=== PATIENT | female | born 1965 | race Caucasian/White ===

== ENCOUNTER → 2017-02-10 | Outpatient (CLI) | payer BC ==
[~2017-02-10] MED LIST: ABILIFY10 MG PO; BIOTIN1000 MCG PO; CARISOPRODOL 3350 MG PO; CHANTIX1 M1 PO; CYMBALTA20 MG PO; CYMBALTA60 MG PO; ESTRADIOL2 MG PO; FLEXERIL10 MG PO; GABAPENTIN 400400 MG PO; KEFLEX 500MG.500 MG PO; LEVAQUIN750 MG PO; LORTAB 5/500 501 TAB PO; MELOXICAM15 MG PO; MULTI VITAMINS1 TA1 PO; NEURONTIN600 MG PO; PERCOCET 325 MG1 TA3 PO; PERCOCET1 TA1 PO; PERCOCET1 TAB PO; PHENERGAN 25MG.25 M1 PO; PRISTIQ100 MG PO; PROZAC10 MG; PROZAC20 MG PO; SEROQUEL25 MG PO; SERTRALINE 100100 MG PO; TOPROL XL 25MG25 MG PO; TYLENOL W/CODEI1 TA2 PO; VITAMIN D31000 IU PO; VYVANSE60 MG PO; WELLBUTRIN XL300 MG PO; ZANAFLEX4 MG NG; [UNRECOGNIZED DRUG - OTHER] PO
--- NOTE | 2017-02-11 06:17 | RADIOLOGY REPORT PS360 ---
EXAM: CT LUNG LOW DOSE WO CONTRAST COMPARISON: None HISTORY: Tobacco abuse ORDERING PHYSICIAN: Dickson Lemus MD PATIENT AGE: 51 years TECHNIQUE: The exam was performed on a GE Light Speed [address] scanner using 2.93 mGy CTDI. A low dose helical CT CHEST was performed on a multi-detector scanner The LDCT was performed in a facility that meets the criteria for the screening program. Data regarding this exam was submitted to ACR which is an approved registry. The order for this exam indicates that it came as a result of a lung cancer screening counseling shard decision-making visit that included all the elements required of such a visit including smoking cessation. The radiologist interpreting this exam meets the [facility] criteria for the LDCT lung cancer screening program. The exam is reported using the Lung-RADS classification scale and reported to the ACR registry. NOTE: This study was performed for the specific purposes of lung cancer screening and is not an alternative to diagnostic chest CT. RADIATION DOSE: CTDI vol(CT dose Index-volume) = 2.93mG DLP (Dose Length Product) = 96.53 mGcm FINDINGS: There are multiple calcified nodules in the left upper lobe. No suspicious nodules apparent. There are atelectatic changes versus scarring in the left lung base. Prior gastric surgery and prior cholecystectomy. IMPRESSION: 1. Lung RADS Category: 2, benign 2. Other findings: Old granulomatous disease RECOMMENDATIONS: LDCT screening exam at age 57
== END ==
LOC: RAD 12:39
DX: Z87.891 Personal history of nicotine dependence (principal); Z12.2 Encounter for screening for malignant neoplasm of respiratory organs
CPT/HCPCS: G0297

== ENCOUNTER 2017-03-05 12:16 | Emergency (ER) | payer BC ==
[~2017-03-05] VITALS: Ht 167.6 cm; Wt 77.2 kg
--- OUTSIDE RECORDS SUMMARY | 2017-03-05 12:22 | External Medical Summary Rpt ---
Author Author LARRY Garay, [employer] Organization [employer] Address Unknown Phone Unavailable
--- OUTSIDE RECORDS SUMMARY | 2017-03-05 12:22 | External Medical Summary Rpt | CCD ---
Author Author , LARRY JUAREZ Address Unknown Phone [email or web address] Purpose Continuity of Care Document - 06-22-2016 through 2016 Problems Code Diagnosis DOS Provider Status N95.1 Menopausal and female climacteric states S62.102A FRACTURE OF UNSP CARPAL BONE, LEFT WRIST, INIT FOR CLOS FX Z00.00 Encounter for general adult medical examination without abnormal findings Results Labs Lab Lab Date Result Refere Interp Status Commen Order Detail nces retati t Range on Vit D25+D1,25 OH+D1,25 Pnl SerPl-mCnc (06-22-2016 16:30) 25(OH)D 26.9 complet 3 017 ng/ml ed SerPl-m 16:30 Cnc Vit B12 SerPl-mCnc (06-22-2016 16:30) Vit B12 281 211-911 complet 017 pg/mL ed Bld-mCn 16:30 c Estradiol SerPl-mCnc (06-22-2016 16:30) Estradi 49.0 complet ol 017 pg/mL ed SerPl 16:30 HS-mCnc TSH SerPl (06-22-2016 16:30) TSH 0.544 0.350-5 complet SerPl 017 mIU/mL .350 ed DL<=0.0 16:30 5 mIU/L-a Cnc Comp Metab 1997 Pnl SerPl (06-22-2016 16:30) Anion 7.0 3.0-11. complet Gap3 017 mmol/L 0 ed SerPl-s 16:30 Cnc BUN/Cre 16.0 7.0-25. complet at 017 0 ed SerPl 16:30 Albumin 1.8 1.5-2.5 complet /Glob 017 g/dL ed SerPl 16:30 Globuli 2.6 complet n Ur 017 gm/dL ed Elph-mC 16:30 nc GFR/BSA 132 >60 complet .pred 017 mL/min/ ed SerPl 16:30 1.73 MDRD-Ar VRat Bilirub 0.3 0.3-1.2 complet 017 mg/dL ed SerPl-m 16:30 Cnc ALP 63 U/L 25-100 complet SerPl-c 017 ed Cnc 16:30 AST 28 U/L 0-33 complet SerPl-c 017 ed Cnc 16:30 ALT 23 U/L 7-40 complet SerPl w 017 ed 16:30 P-5'-P- cCnc Albumin 4.60 3.20-4. complet 017 g/dL 80 ed SerPl-m 16:30 Cnc Prot 7.2 5.7-8.2 complet SerPl-m 017 g/dL ed Cnc 16:30 Calcium 10.0 8.7-10. complet 017 mg/dL 4 ed XXX-sCn 16:30 c CO2 28.0 20.0-31 complet SerPl-s 017 mmol/L .0 ed Cnc 16:30 Chlorid 104 99-109 complet e 017 mmol/L ed SerPl-s 16:30 Cnc Potassi 4.4 3.5-5.5 complet um 017 mmol/L ed Bld-sCn 16:30 c Sodium 139 132-146 complet Bld-sCn 017 mmol/L ed c 16:30 Creat 0.50 0.60-1. complet Bld-mCn 017 mg/dL 30 ed c 16:30 BUN 8 mg/dL 9-23 complet Bld-mCn 017 ed c 16:30 Glucose 87 70-100 complet 017 mg/dL ed Bld-mCn 16:30 c CBC (hemogram) Bld Auto (06-22-2016 16:30) Platele 356 150-450 complet t # Bld 017 10*3/mm ed Auto 16:30 3 PMV Bld 03-22-2 10.7 fL 6.0-12. complet Auto 017 0 ed 16:30 RDW RBC 06-22-2 42.8 fl 37.0-54 complet Auto 017 .0 ed 16:30 RDW RBC 06-22-2 12.0 % 11.3-14 complet 017 .5 ed Auto-Rt 16:30 o MCHC 06-22-2 33.0 32.0-36 complet RBC 017 g/dL .0 ed Auto-mC 16:30 nc MCH RBC 06-22-2 31.9 pg 27.0-31 complet Qn 017 .0 ed Auto 16:30 MCV RBC 2 96.7 fL 80.0-99 complet Auto 017 .0 ed 16:30 Hct VFr 06-22-2 38.5 % 34.5-44 complet Bld 017 .0 ed Auto 16:30 Hgb 06-22-2 12.7 11.5-15 complet Bld-mCn 017 g/dL .5 ed c 16:30 RBC # 06-22-2 3.98 3.89-5. complet Bld 017 10*6/mm 14 ed Auto 16:30 3 WBC 06-22-2 6.70 3.50-10 complet nRBC 017 10*3/mm .80 ed cor # 16:30 3 Bld
--- OUTSIDE RECORDS SUMMARY | 2017-03-05 12:22 | External Medical Summary Rpt | CCD ---
Demographics Preferred Language Ecuadorean Marital Status Unknown Yazdanism Affiliation Unknown Race Unknown Ethnic Group Unknown Author Author , LARRY JUAREZ Address Unknown Phone Immunization No patient found.
--- OUTSIDE RECORDS SUMMARY | 2017-03-05 12:22 | External Medical Summary Rpt | CCD ---
Author Author , LARRY JUAREZ Address Unknown Phone [email or web address] Purpose Continuity of Care Document - 06-22-2016 [...]
--- OUTSIDE RECORDS SUMMARY | 2017-03-05 12:22 | External Medical Summary Rpt | CCD ---
Author Author [employer] Organization [employer] Address Unknown Phone Unavailable Purpose Continuity of Care Document - through 2016
--- OUTSIDE RECORDS SUMMARY | 2017-03-05 12:22 | External Medical Summary Rpt | CCD ---
Demographics Preferred Language Gambian Marital Status Unknown Judaism Affiliation Unknown Race Unknown Ethnic Group Unknown Author Author , LARRY JUAREZ Address Unknown Phone Immunization No patient found.
--- NOTE | 2017-03-05 12:55 | Urgent Treatment Center Report ---
History of Present Issue Date/Time Seen by Provider 03/05/17 1253 Visit Reason Pt arrived:Walked Presenting Problem:PT C/O OF HEAD AND CHEST CONGETION, SINUS PRESSURE, BODY ACHES, AND COUGH FOR 3 DAYS Location if Accident: Onset of symptoms date/time:/ or onset unknown for:MEDICAL HX UNKNOWN Have you (or family members/close friends) recently traveled outside the [place]? N If Yes, where/when: Have you had exposure to infectious disease within the past month? TB? Other? Specify: Patient state that she has not been feeling well for several days now State that she is having sorethroat, sinus pain and pressure, body aches and cough. State that she feels like she may have been running a fever. States that she has tried several over the counter medications but nothing has worked ALLERGIES Coded Allergies: No Known Allergies (04/10/16) Home Medications Active Scripts OXYCODONE HCL/ACETAMINOPHEN (Percocet 5-325 MG Tablet) 1 TAB PO Q6HP PRN pain #20 TAB Prov: 04/10/16 Reported Medications Sertraline Hydrochloride (Sertraline 100MG) 100 MG PO DAILY #45 Lisdexamfetamine Dimesylate (Vyvanse) 75 MG PO DAILY #30 Estradiol 2 MG PO DAILY MULTIVITAMIN (One Daily Multivitamin) 1 TAB PO DAILY #2 TAB Biotin 1,000 MCG PO DAILY History Medical History General CAD? No Angina: No MD: No Hypertension? No Hyperlipidemia? No CHF? No DVT? No PE? No COPD? No Asthma? No Anemia? No GERD? No Gastric ulcers? No GI Bleed? No Hernia? No Thyroid Problems? No Hypothyroidism? No CVA? No Seizures? No Diabetes? No Renal Insuffiency? No UTI? No Stones? Yes BPH? No GB Disease: No Nephritic Syndrome? No Asplenia? No Hepatitis? No Sickle Cell Disease? No Arthritis? No Migraines? No Cataracts? No Glaucoma? No MRSA? No HIV? No TB? No Anxiety? No Depression? No Cancer? No More? Yes Additional hx: TAI ROSS SYNDROM GUILLIAN Immunization HX DT/Tetanus UNKNOWN Flu THISFLUSEA Pneumonia 04/10/11 Surgical Hx Previous Surgery?Y HYSTERECTOMY 4 YRS AGO [facility] [employer] COLONOSCOPY GB REMOVED KNEE & SHOULDER SURG Appendix KNEE BILAT SHOULDER (RIGHT) GASTRIC BYPASS 10/2007 [facility] Hx LMP 3 Weeks Ago Family History Family HX Diabetes Yes CAD Yes Hypertension Yes Hyperlipidemia No Cancer Yes TB No Social History Smoking Hx Smoker: Current Every Day Smoker Tobacco: Yes Type Cigarettes Packs/day < 1 Pack Alcohol Alcohol: No Review of Systems All Other Systems Reviewed and Negative Constitutional chills, fever ENT ear pain, nose pain, throat pain. Respiratory cough Physical Exam Vital Signs Vital Signs Date Time Temp Pulse Resp B/P Pulse O2 O2 Flow FiO2 Ox Delivery Rate 03/05 1223 98.4 72 20 147/95 98 General Appearance Patient appears ill, cheeks flush sitting on exam table Ear, Nose, Throat Tenderness noted maxillary sinus, yellowish green drainage from nose, throat red irritated Respiratory Status Yes: trachea midline, chest symmetrical, non tender chest. No: respiratory distress. Lung Sounds bilateral: normal breath sounds, lungs clear. Cardiovascular normal exam, regular rate/rhythm, no peripheral edema Neurologic alert, normal exam, oriented x 3 Medical Decision Making LABS/Meds/Orders Pt receiving controlled substance in ED? No Results/Orders Laboratory Tests 03/05/17 1250: Influenza Type A Ag NOT DETECTED, Influenza Type B Ag NOT DETECTED Current Medication Orders Sig/Darron Start time Last Medication Dose Route Stop Time Status Admin Ceftriaxone Sodium 1 GM ONCE ONE 03/05 1315 AC IM 03/05 1316 Ceftriaxone Sodium 0 .STK-MED ONE 03/05 1315 DC .ROUTE Lidocaine HCl 0 ONCE ONE 03/05 1315 AC IM 03/05 1316 Lidocaine HCl 0 .STK-MED ONE 03/05 1315 DC .ROUTE Methylprednisolone 125 MG ONCE ONE 03/05 1315 AC Sodium Succinate IM 03/05 1316 Methylprednisolone 0 .STK-MED ONE 03/05 1315 DC Sodium Succinate .ROUTE Orders Procedure Date/time Status [facility] FLU A,B 03/05 1250 Complete Departure Departure Time of Disposition 1312 Disposition DC Home or Self Care(routine) Clinical Impression Primary Impression: Upper respiratory infection Qualifiers: URI type: unspecified URI Qualified Code: J06.9 - Acute upper respiratory infection, unspecified Condition STABLE Referrals Kate SHAH,Juanito (Family): 3 Days-Call Office if no improvement in symptoms Patient Instructions Cough, DI for Nasal Congestion, Sore Throat Additional Instructions * Monitor Temp. Tylenol and/or Ibuprofen as needed. ER if fever is no less than 101 despite alternating Tylenol and Ibuprofen * Encourage fluids, water, Gatorade, powerade, pedialyte if /toddler/or child * Warm salt water gargles for throat irritation *Warm fluids *Sore throat lozenges *Sleep elevated *humidifier or vaporizer Lots of rest Increase fluids, water, Gatorade, powerade *Flonase 2 sprays each nostril daily but may take 2-3 days to notice improvement with it Follow up IMMEDIATELY for new or worsening of symptoms OR no noticeable improvement over the next 48-72 hours. 911 immediately for any life threatening symptoms such as chest pain or difficulty breathing Discharge Counseling Counseled pt/family regarding diagnosis, test results, medications/RX, home care, follow up needs Prescriptions Current Visit Scripts Loratadine (Claritin 10MG) 10 MG PO DAILY #30 TAB Fluticasone Propionate (Flonase 50 Mcg Nasal [place]) 2 SPRAY NA DAILY #1 BOT Guaifenesin (Mucinex) 1,200 MG PO BID #20 TER PROMETHAZINE/DEXTROMETHORPHAN (Promethazine-Dm Syrup) 5 ML PO Q4HP PRN cough #150 SYR at 1310
[2017-03-05] MEDS ORDERED: CLARITIN 10MG T10 MG PO (13:15)
[2017-03-05] MEDS ORDERED: MUCINEX1200 MG PO (13:15)
[2017-03-05] MEDS ORDERED: PROMETHAZINE D118 ML PO (13:15)
[2017-03-05] MEDS ORDERED: FLONASE 50 MCG16 GM (13:15)
[2017-03-05 13:23] VITALS: BP 147/95
[2017-03-13] MEDS ORDERED: HYOSCYAMINE0.125 M6 SL (18:47)
[2017-03-14] MEDS ORDERED: PHENERGAN25 M3 PO (16:18)
[2017-03-15] MEDS ORDERED: ALBUTEROL-200 PUFFS/ IH (10:41)
[2017-03-18] MEDS ORDERED: FENTANYL TR25 MCG/HR TD (11:54)
[2017-03-18] MEDS ORDERED: CEFDINIR300 M1 PO (11:55)
[2017-03-18] MEDS ORDERED: CARAFATE1 GM/10 ML PO (11:56)
[2017-03-18] MEDS ORDERED: HYOSCYAMINE0.125 M1 PO (11:57)
== END 2017-03-05 13:24 | disposition home or self-care (01) ==
LOC: UTC 12:16
DX: J06.9 Acute upper respiratory infection, unspecified (principal); F17.210 Nicotine dependence, cigarettes, uncomplicated

== ENCOUNTER 2017-03-10 07:48 | Emergency (ER) | payer BC ==
[~2017-03-10] VITALS: Ht 167.6 cm; Wt 80.3 kg
[~2017-03-10 07:48] MED LIST changes: +CLARITIN 10MG T10 MG PO; +FLONASE 50 MCG16 GM; +MUCINEX1200 MG PO; +PROMETHAZINE D118 ML PO
[2017-03-10] MEDS ORDERED: METOPROLOL SUC200 M1 PO (08:01)
[2017-03-10] MEDS ORDERED: LAMOTRIGINE100 M1 PO (08:02)
--- NOTE | 2017-03-10 08:06 | Emergency Room Report ---
History of Present Illness Time Seen by 0805 Presenting Problem in Triage Pt arrived:Walked Presenting Problem:PT STATES THAT SHE HAS BEEN SICK FOR TWO WEEKS, SEEN IN [facility] ON 03/05/17, AND ON MONDAY AND PT IS STILL NOT FEELING BETTER. PT C/O COUGH SORE THROAT, LOWER RIB PAIN, WEAKNESS, SOA. 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 N Clinical Suspician of Infection? N Mental Status: 1 - Regular (Normal Baseline) Sepsis Risk:Low Sepsis Risk Have you (or family members/close friends) recently traveled outside the [place]? N If Yes, where/when: Have you had exposure to infectious disease within the past month? N TB? Other? Specify: Patient is a smoker with wheezing and bronchitic cough for the last week or so. Seen at [facility] and neg for influenza, given steroid injection x 1. Follow up with Dr. Love on 03/07/17 and placed on Zithromax. No fever today. No vomiting. Continues to wheeze at night. Has cut down on smoking. Taking PO well. Has been on HFA's in the past but not currently. Is not currently on steroid taper. ALLERGIES Coded Allergies: acetaminophen (From LORTAB) (03/10/17) hydrocodone (From LORTAB) (03/10/17) Home Medications Active Scripts Loratadine (Claritin 10MG) 10 MG PO DAILY #30 TAB Prov: 03/05/17 Fluticasone Propionate (Flonase 50 Mcg Nasal [place]) 2 SPRAY NA DAILY #1 BOT Prov: 03/05/17 Guaifenesin (Mucinex) 1,200 MG PO BID #20 TER Prov: 03/05/17 PROMETHAZINE/DEXTROMETHORPHAN (Promethazine-Dm Syrup) 5 ML PO Q4HP PRN cough #150 SYR Prov: 03/05/17 OXYCODONE HCL/ACETAMINOPHEN (Percocet 5-325 MG Tablet) 1 TAB PO Q6HP PRN pain #20 TAB Prov: 04/10/16 Reported Medications Sertraline Hydrochloride (Sertraline 100MG) 100 MG PO DAILY #45 Lisdexamfetamine Dimesylate (Vyvanse) 75 MG PO DAILY #30 METOPROLOL SUCCINATE (Metoprolol ER 200MG) 200 MG PO DAILY #135 Lamotrigine 100 MG PO BID #180 Estradiol 2 MG PO DAILY MULTIVITAMIN (One Daily Multivitamin) 1 TAB PO DAILY #2 TAB Biotin 1,000 MCG PO DAILY History Medical History General CAD? No Angina: No OH: No Hypertension? No Hyperlipidemia? No CHF? No DVT? No PE? No COPD? No Asthma? No Anemia? No GERD? No Gastric ulcers? No GI Bleed? No Hernia? No Thyroid Problems? No Hypothyroidism? No CVA? No Seizures? No Diabetes? No Renal Insuffiency? No End Stage Renal Disease? No UTI? No Stones? Yes BPH? No GB Disease: No Nephritic Syndrome? No Asplenia? No Hepatitis? No Sickle Cell Disease? No Arthritis? No Migraines? No Cataracts? No Glaucoma? No MRSA? No HIV? No TB? No Anxiety? No Depression? No Cancer? No More? Yes Additional hx: TAI ROSS SYNDROM GUILLIAN Immunization Hx DT/Tetanus UNKNOWN Flu THISFLUSEA Pneumonia 04/10/11 Surgical Hx Previous Surgery?Y HYSTERECTOMY 4 YRS AGO [facility] COLONOSCOPY GB REMOVED KNEE & SHOULDER SURG Appendix KNEE BILAT SHOULDER (RIGHT) GASTRIC BYPASS 10/2007 [employer] OR WOMAN Hx LMP N/A Family History Family Hx Diabetes Yes CAD Yes Hypertension Yes Hyperlipidemia No Cancer Yes TB No Social History Smoking Hx Smoker: Never Smoker Tobacco: No Packs/day < 1 Pack Alcohol Alcohol: No Review of Systems All Other Systems Reviewed and Negative Respiratory see HPI Physical Exam Vital Signs Vital Signs Date Time Temp Pulse Resp B/P Pulse O2 O2 Flow FiO2 Ox Delivery Rate 03/10 0751 98.5 67 20 147/95 97 General Appearance normal appearance, WD/WN, no apparent distress Eye Exam - bilateral eye normal exam, bilateral eye PERRL, bilateral eye EOMI Ear, Nose, Throat hearing grossly normal, normal ENT inspection, normal pharynx, s/p tonsillectomy; OP wet Neck normal inspection, non-tender, supple, full range of motion Respiratory Status Yes: trachea midline, chest symmetrical, tender on palpation (muscular pain w/ cough R chest), non productive cough (bronchitic cough). No: respiratory distress, non tender chest, use of accessory muscles, pain on inspiration, pain on expiration, productive cough. Lung Sounds bilateral: normal breath sounds, lungs clear (occ scattered wheezes end exp). Cardiovascular normal exam, regular rate/rhythm, no peripheral edema, no gallop, no JVD, no murmur, no rub, normal peripheral pulses Gastrointestinal normal bowel sounds, normal exam, non tender, soft, no organomegaly, no pulsatile mass, no guarding, no rebound Extremities non-tender, normal range of motion, normal capillary refill, no calf tenderness, no pedal edema Strength 5 Upper Ext (L), 5 Upper Ext (R), 5 Lower Ext (L), 5 Lower Ext (R) Neurologic alert, normal exam, no motor/sensory deficits, oriented x 3 Glascow Coma Scale Glascow Coma Scale Response Value EYE response: 4 Spontaneously 4 MOTOR response: 6 OBEYS 6 VERBAL response: 5 Oriented & Converses 5 Total 15 Skin intact, normal color, warm/dry (good turgor) Lymphatic no adenopathy, axilla node tender (R), axilla node tender (L), inguinal node tender (R), inguinal node tender (L) Medical Decision Making LABS/Meds/Orders Pt receiving controlled substance in ED? No Results/Orders Orders Procedure Date/time Status CHEST(2 VIEWS-NOT PORTABLE) 03/10 0806 Active Departure Departure Time of Disposition 0824 Disposition DC Home or Self Care(routine) Clinical Impression Primary Impression: Bronchitis Condition STABLE Referrals Juanito Love MD (Family) Patient Instructions Acute Bronchitis Additional Instructions Albuterol, Medrol, see Dr. Love in one to three days for recheck. Avoid tobacco smoke. Cover mouth with scarf when out in dry cold, and use humidifier in home. Discharge Counseling Counseled pt/family regarding diagnosis, test results, medications/RX, home care Prescriptions Current Visit Scripts Methylprednisolone (Medrol Dose Karen) 4 MG PO UD #1 KAREN TAKE DIRECTED ON PACKAGING Albuterol Sulfate (Proventil Hfa) 0.09 MG IH Q6HP PRN cough #1 INH generic ok ED Critical Care Critical Care No at 0864
--- NOTE | 2017-03-10 08:06 | Emergency Room Report ---
History of Present Illness Time Seen by [id number] Presenting Problem in Triage Pt arrived:Walked Presenting Problem:PT STATES THAT SHE HAS BEEN SICK FOR TWO WEEKS, SEEN IN [facility] ON 03/05/17, AND ON MONDAY AND PT IS STILL NOT FEELING BETTER. PT C/O COUGH SORE THROAT, LOWER RIB PAIN, WEAKNESS, SOA. 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 N Clinical Suspician of Infection? N Mental Status: 1 - Regular (Normal Baseline) Sepsis Risk:Low Sepsis Risk Have you (or family members/close friends) recently traveled outside the [place]? N If Yes, where/when: Have you had exposure to infectious disease within the past month? N TB? Other? Specify: Patient is a smoker with wheezing and bronchitic cough for the last week or so. Seen at [facility] and neg for influenza, given steroid injection x 1. Follow up with Dr. Love on 03/07/17 and placed on Zithromax. No fever today. No vomiting. Continues to wheeze at night. Has cut down on smoking. Taking PO well. Has been on HFA's in the past but not currently. Is not currently on steroid taper. ALLERGIES Coded Allergies: acetaminophen (From LORTAB) (03/10/17) hydrocodone (From LORTAB) (03/10/17) Home Medications Active Scripts Loratadine (Claritin 10MG) 10 MG PO DAILY #30 TAB Prov: 03/05/17 Fluticasone Propionate (Flonase 50 Mcg Nasal [place]) 2 SPRAY NA DAILY #1 BOT Prov: 03/05/17 Guaifenesin (Mucinex) 1,200 MG PO BID #20 TER Prov: 03/05/17 PROMETHAZINE/DEXTROMETHORPHAN (Promethazine-Dm Syrup) 5 ML PO Q4HP PRN cough #150 SYR Prov: 03/05/17 OXYCODONE HCL/ACETAMINOPHEN (Percocet 5-325 MG Tablet) 1 TAB PO Q6HP PRN pain #20 TAB Prov: 04/10/16 Reported Medications Sertraline Hydrochloride (Sertraline 100MG) 100 MG PO DAILY #45 Lisdexamfetamine Dimesylate (Vyvanse) 75 MG PO DAILY #30 METOPROLOL SUCCINATE (Metoprolol ER 200MG) 200 MG PO DAILY #135 Lamotrigine 100 MG PO BID #180 Estradiol 2 MG PO DAILY MULTIVITAMIN (One Daily Multivitamin) 1 TAB PO DAILY #2 TAB Biotin 1,000 MCG PO DAILY History Medical History General CAD? No Angina: No IA: No Hypertension? No Hyperlipidemia? No CHF? No DVT? No PE? No COPD? No Asthma? No Anemia? No GERD? No Gastric ulcers? No GI Bleed? No Hernia? No Thyroid Problems? No Hypothyroidism? No CVA? No Seizures? No Diabetes? No Renal Insuffiency? No End Stage Renal Disease? No UTI? No Stones? Yes BPH? No GB Disease: No Nephritic Syndrome? No Asplenia? No Hepatitis? No Sickle Cell Disease? No Arthritis? No Migraines? No Cataracts? No Glaucoma? No MRSA? No HIV? No TB? No Anxiety? No Depression? No Cancer? No More? Yes Additional hx: TIA ROSS SYNDROM GUILLIAN Immunization Hx DT/Tetanus UNKNOWN Flu THISFLUSEA Pneumonia 04/10/11 Surgical Hx Previous Surgery?Y HYSTERECTOMY 4 YRS AGO [facility] COLONOSCOPY GB REMOVED KNEE & SHOULDER SURG Appendix KNEE BILAT SHOULDER (RIGHT) GASTRIC BYPASS 10/2007 C[employer] Hx LMP N/A Family History Family Hx Diabetes Yes CAD Yes Hypertension Yes Hyperlipidemia No Cancer Yes TB No Social History Smoking Hx Smoker: Never Smoker Tobacco: No Packs/day < 1 Pack Alcohol Alcohol: No Review of Systems All Other Systems Reviewed and Negative Respiratory see HPI Physical Exam Vital Signs Vital Signs Date Time Temp Pulse Resp B/P Pulse O2 O2 Flow FiO2 Ox Delivery Rate 03/10 0751 98.5 67 20 147/95 97 General Appearance normal appearance, WD/WN, no apparent distress Eye Exam - bilateral eye normal exam, bilateral eye PERRL, bilateral eye EOMI Ear, Nose, Throat hearing grossly normal, normal ENT inspection, normal pharynx, s/p tonsillectomy; OP wet Neck normal inspection, non-tender, supple, full range of motion Respiratory Status Yes: trachea midline, chest symmetrical, tender on palpation (muscular pain w/ cough R chest), non productive cough (bronchitic cough). No: respiratory distress, non tender chest, use of accessory muscles, pain on inspiration, pain on expiration, productive cough. Lung Sounds bilateral: normal breath sounds, lungs clear (occ scattered wheezes end exp). Cardiovascular normal exam, regular rate/rhythm, no peripheral edema, no gallop, no JVD, no murmur, no rub, normal peripheral pulses Gastrointestinal normal bowel sounds, normal exam, non tender, soft, no organomegaly, no pulsatile mass, no guarding, no rebound Extremities non-tender, normal range of motion, normal capillary refill, no calf tenderness, no pedal edema Strength 5 Upper Ext (L), 5 Upper Ext (R), 5 Lower Ext (L), 5 Lower Ext (R) Neurologic alert, normal exam, no motor/sensory deficits, oriented x 3 Glascow Coma Scale Glascow Coma Scale Response Value EYE response: 4 Spontaneously 4 MOTOR response: 6 OBEYS 6 VERBAL response: 5 Oriented & Converses 5 Total 15 Skin intact, normal color, warm/dry (good turgor) Lymphatic no adenopathy, axilla node tender (R), axilla node tender (L), inguinal node tender (R), inguinal node tender (L) Medical Decision Making LABS/Meds/Orders Pt receiving controlled substance in ED? No Results/Orders Orders Procedure Date/time Status CHEST(2 VIEWS-NOT PORTABLE) 03/10 0806 Active Departure Departure Time of Disposition 0824 Disposition DC Home or Self Care(routine) Clinical Impression Primary Impression: Bronchitis Condition STABLE Referrals Juanito Love MD (Family) Patient Instructions Acute Bronchitis Additional Instructions Albuterol, Medrol, see Dr. Love in one to three days for recheck. Avoid tobacco smoke. Cover mouth with scarf when out in dry cold, and use humidifier in home. Discharge Counseling Counseled pt/family regarding diagnosis, test results, medications/RX, home care Prescriptions Current Visit Scripts Methylprednisolone (Medrol Dose Karen) 4 MG PO UD #1 KAREN TAKE DIRECTED ON PACKAGING Albuterol Sulfate (Proventil Hfa) 0.09 MG IH Q6HP PRN cough #1 INH generic ok ED Critical Care Critical Care No at 0816
--- OUTSIDE RECORDS SUMMARY | 2017-03-10 08:06 | External Medical Summary Rpt | CCD ---
Demographics Preferred Language Sierra Leonean Marital Status Unknown Pentecostalism Affiliation Unknown Race Unknown Ethnic Group Unknown Author Author , LARRY JUAREZ Address Unknown Phone Immunization No patient found.
--- OUTSIDE RECORDS SUMMARY | 2017-03-10 08:06 | External Medical Summary Rpt ---
Author Author [employer], [employer] Organization [employer] Address Unknown Phone Unavailable Results Influenza virus A+B Ag [Presence] in Unspecified specimen Observa Value Referen Units Interpr Notes Date tion ce etation Range Influen NOT NOT No No No Mar 3 za DETECTE DETECTD informa informa informa 2017 virus A D tion in tion in tion in 12:50 Ag source source source PM [Presen data data data ce] in Unspeci fied specime n INFLUEN NOT NOT No No LOT # Mar 3 ZA B DETECTE DETECTD informa informa @[id number] 2017 ANTIGEN D tion in tion in 5 EXP 12:50 source source DATE PM data data @12-31
--- OUTSIDE RECORDS SUMMARY | 2017-03-10 08:06 | External Medical Summary Rpt | CCD ---
Author Author , LARRY JUAREZ Address Unknown Phone [email or web address] [employer] Wellness Team Purpose Continuity of Care Document - 06-22-2016 through 2016 Problems Code Diagnosis DOS Provider Status N95.1 Menopausal and female climacteric states S62.102A FRACTURE OF UNSP CARPAL BONE, LEFT WRIST, INIT FOR CLOS FX Z00.00 Encounter for general adult medical examination without abnormal findings Results Labs Lab Lab Date Result Refere Interp Status Commen Order Detail nces retati t Range on Rapid influenza A and B antigen detectio (03-05-2017 12:50) Influen NOT NOT complet za A ag 017 DETECTE DETECTD ed QL 12:50 D NOT DETECTE D L INFLUEN NOT NOT complet ZA B 017 DETECTE DETECTD ed ANTIGEN 12:50 D Influenza virus A+B Ag [Presence] in Unspecified specimen (03-05-2017 12:50) Influen NOT NOT complet za 017 DETECTE DETECTD ed virus A 12:50 D Ag [Presen ce] in Unspeci fied specime n INFLUEN NOT NOT complet ZA B 017 DETECTE DETECTD ed ANTIGEN 12:50 D CBC (hemogram) Bld Auto (06-22-2016 16:30) WBC 6.70 3.50-10 complet nRBC 017 10*3/mm .80 ed cor # 16:30 3 Bld RBC # 3.98 3.89-5. complet Bld 017 10*6/mm 14 ed Auto 16:30 3 Hgb 12.7 11.5-15 complet Bld-mCn 017 g/dL .5 ed c 16:30 Hct VFr 38.5 % 34.5-44 complet Bld 017 .0 ed Auto 16:30 MCV RBC 96.7 fL 80.0-99 complet Auto 017 .0 ed 16:30 MCH RBC 2 31.9 pg 27.0-31 complet Qn 017 .0 ed Auto 16:30 MCHC 06-22-2 33.0 32.0-36 complet RBC 017 g/dL .0 ed Auto-mC 16:30 nc RDW RBC 06-22-2 12.0 % 11.3-14 complet 017 .5 ed Auto-Rt 16:30 o RDW RBC 06-22-2 42.8 fl 37.0-54 complet Auto 017 .0 ed 16:30 PMV Bld 2 10.7 fL 6.0-12. complet Auto 017 0 ed 16:30 Platele 356 150-450 complet t # Bld 017 10*3/mm ed Auto 16:30 3 Comp Metab 1998 Pnl SerPl (06-22-2016 16:30) Glucose 06-22-2 87 70-100 complet 017 mg/dL ed Bld-mCn 16:30 c BUN 06-22-2 8 mg/dL 9-23 complet Bld-mCn 017 ed c 16:30 Creat 06-22-2 0.50 0.60-1. complet Bld-mCn 017 mg/dL 30 ed c 16:30 Sodium 06-22-2 139 132-146 complet Bld-sCn 017 mmol/L ed c 16:30 Potassi 06-22-2 4.4 3.5-5.5 complet um 017 mmol/L ed Bld-sCn 16:30 c Chlorid 06-22- 104 99-109 complet e 017 mmol/L ed SerPl-s 16:30 Cnc CO2 06-22-2 28.0 20.0-31 complet SerPl-s 017 mmol/L .0 ed Cnc 16:30 Calcium 06-22-2 10.0 8.7-10. complet 017 mg/dL 4 ed XXX-sCn 16:30 c Prot 06-22-2 7.2 5.7-8.2 complet SerPl-m 017 g/dL ed Cnc 16:30 Albumin 06-22-2 4.60 3.20-4. complet 017 g/dL 80 ed SerPl-m 16:30 Cnc ALT 06-22-2 23 U/L 7-40 complet SerPl w 017 ed 16:30 P-5'-P- cCnc AST 28 U/L 0-33 complet SerPl-c 017 ed Cnc 16:30 ALP 63 U/L 25-100 complet SerPl-c 017 ed Cnc 16:30 Bilirub 0.3 0.3-1.2 complet 017 mg/dL ed SerPl-m 16:30 Cnc GFR/BSA 132 >60 complet .pred 017 mL/min/ ed SerPl 16:30 1.73 MDRD-Ar VRat Globuli 2.6 complet n Ur 017 gm/dL ed Elph-mC 16:30 nc Albumin 1.8 1.5-2.5 complet /Glob 017 g/dL ed SerPl 16:30 BUN/Cre 16.0 7.0-25. complet at 017 0 ed SerPl 16:30 Anion 7.0 3.0-11. complet Gap3 017 mmol/L 0 ed SerPl-s 16:30 Cnc TSH SerPl (06-22-2016 16:30) TSH 0.544 0.350-5 complet SerPl 017 mIU/mL .350 ed DL<=0.0 16:30 5 mIU/L-a Cnc Estradiol SerPl-mCnc (06-22-2016 16:30) Estradi 49.0 complet ol 017 pg/mL ed SerPl 16:30 HS-mCnc Vit B12 SerPl-mCnc (06-22-2016 16:30) Vit B12 281 211-911 complet 017 pg/mL ed Bld-mCn 16:30 c Vit D25+D1,25 OH+D1,25 Pnl SerPl-mCnc (06-22-2016 16:30) 25(OH)D 26.9 complet 3 017 ng/ml ed SerPl-m 16:30 Cnc
--- OUTSIDE RECORDS SUMMARY | 2017-03-10 08:06 | External Medical Summary Rpt | CCD ---
Demographics Preferred Language Cymro Marital Status Unknown Rastafari Affiliation Unknown Race Unknown Ethnic Group Unknown Author Author , LARRY JUAREZ Address Unknown Phone Immunization No patient found.
--- OUTSIDE RECORDS SUMMARY | 2017-03-10 08:06 | External Medical Summary Rpt | CCD ---
Author Author , LARRY JUAREZ Address Unknown Phone [email or web address] Purpose Continuity of Care Document - 06-22-2016 [...]
--- OUTSIDE RECORDS SUMMARY | 2017-03-10 08:06 | External Medical Summary Rpt ---
[...] 3 ZA B DETECTE DETECTD informa informa @[id number] ANTIGEN D tion in tion in 5 EXP 12:50 source source DATE PM data data @12-31
[2017-03-10] MEDS ORDERED: MEDROL 4MG. DOSE4 MG PO (08:27)
[2017-03-10] MEDS ORDERED: PROVENTIL0.09 MG/Ac IH (08:27)
[2017-03-10 08:32] VITALS: BP 147/95
[2017-03-13] MEDS ORDERED: HYOSCYAMINE0.125 M6 SL (18:47)
[2017-03-14] MEDS ORDERED: PHENERGAN25 M3 PO (16:18)
[2017-03-15] MEDS ORDERED: ALBUTEROL-200 PUFFS/ IH (10:41)
[2017-03-18] MEDS ORDERED: FENTANYL TR25 MCG/HR TD (11:54)
[2017-03-18] MEDS ORDERED: CEFDINIR300 M1 PO (11:55)
[2017-03-18] MEDS ORDERED: CARAFATE1 GM/10 ML PO (11:56)
[2017-03-18] MEDS ORDERED: HYOSCYAMINE0.125 M1 PO (11:57)
== END 2017-03-10 08:33 | disposition home or self-care (01) ==
LOC: ER 07:48
DX: J40 Bronchitis, not specified as acute or chronic (principal); G61.0 Guillain-Barre syndrome; Z98.84 Bariatric surgery status; Z90.710 Acquired absence of both cervix and uterus; Z79.899 Other long term (current) drug therapy; F17.200 Nicotine dependence, unspecified, uncomplicated